=== PATIENT | female | born 1980 | race African-American/Black ===

== ENCOUNTER 2016-07-24 12:04 | Emergency (ER) | payer OTHER ==
[2016-07-24 12:22] VITALS: TEMP 97.8; BMI 32.8
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
[2016-07-24] MEDS ORDERED: KETOROLAC TROMETHAMINE 60 MG/2 ML VIAL IM ONE ×2 (12:48→15:51)
[2016-07-24] MEDS ORDERED: diazePAM 5 MG TABLET PO ONE ×2 (12:48→15:51)
[2016-07-24] MEDS ORDERED: diazePAM 5 MG TABLET ONE ×2 (12:52→16:09)
[2016-07-24] MEDS ORDERED: KETOROLAC TROMETHAMINE 60 MG/2 ML VIAL ONE (12:52)
[2016-07-24] MEDS ORDERED: CYCLOBENZAPRINE HCL 10 MG TABLET (FP) PO ONE (14:16)
[2016-07-24] MEDS ORDERED: ACETAMINOPHEN 325 MG TABLET (FP) PO ONE (14:17)
[2016-07-24] MEDS ORDERED: ACETAMINOPHEN 325 MG TABLET (FP) ONE (14:38)
[2016-07-24] MEDS ORDERED: CYCLOBENZAPRINE HCL 10 MG TABLET (FP) ONE (14:38)
[2016-07-24 18:19] VITALS: BP 163/101; PULSE 70
== END 2016-07-24 18:05 | disposition home or self-care (01) ==
LOC: JER 12:04
PROC: 3E0233Z Introduction of Anti-inflammatory into Muscle, Percutaneous Approach (ICD-10-PCS; principal; 2016-07-24)
DX: M62.830 Muscle spasm of back (principal); I10 Essential (primary) hypertension; F41.8 Other specified anxiety disorders; V49.59XA Passenger injured in collision with other motor vehicles in traffic accident, initial encounter; Y92.488 Other paved roadways as the place of occurrence of the external cause; Y93.89 Activity, other specified
CPT/HCPCS: 36415; 72070-TC; 72100-TC; 84702; 84703; 99282-25

== ENCOUNTER 2017-05-03 04:35 | Emergency (ER) | payer OTHER ==
[2017-05-03 04:56] VITALS: BP 170/110; PULSE 53; TEMP 97.6; BMI 35.5
--- NOTE | 2017-05-03 04:57 | PDOC ---
History of Present Illness - General Chief Complaint: Pain Stated Complaint: BACK PAIN Time Seen by Provider: 05/03/17 04:55 Past History - Past Medical History Allergies/Adverse Reactions: Allergies Allergy/AdvReac Type Severity Reaction Status Date / Time No Known Allergies Allergy Verified 05/03/17 04:52 Home Medications: Ambulatory Orders Alprazolam [Xanax] 1 mg PO BID 07/24/16 Amlodipine Besylate 10 mg PO DAILY 07/24/16 Cyclobenzaprine HCl [Flexeril 10 mg] 10 mg PO BID PRN #20 tablet MDD 2 07/24/16 Divalproex *ER* [Depakote *ER* -] 500 mg PO HS 07/24/16 Ibuprofen 400 mg PO QID #30 tablet 07/24/16 Lisinopril [Prinivil -] 40 mg PO DAILY 07/24/16 Omeprazole 40 mg PO DAILY 07/24/16 Zolpidem Tartrate [Ambien] 10 mg PO HS 07/24/16 Asthma: No Cancer: No Cardiac Disorders: No COPD: No Diabetes: No GI Disorders: Yes (GERD) HTN: Yes Psychiatric Problems: Yes (Anxiety, Bipolar and depression) Seizures: No Thyroid Disease: No - Surgical History Abdominal Surgery: Yes (Gastric bypass) Cholecystectomy: Yes - Reproductive History (#): 9 Para: 2 Cervical CA: No Dysfunctional Uterine Bleeding: No Ectopic : No Endometrial CA: No Polycystic Ovaries: No Therapeutic (s) & number: Yes Tubal Ligation: No Spontaneous : 1 - Suicide/Smoking/Psychosocial Hx Smoking Status: Yes Smoking History: Never smoked Have you smoked in the past 12 months: Yes Number of Cigarettes Smoked Daily: 3 Information on smoking cessation initiated: No 'Breaking Loose' booklet given: 07/24/16 Hx Alcohol Use: No Drug/Substance Use Hx: No Substance Use Type: None Hx Substance Use Treatment: No *Physical Exam - Vital Signs Last Vital Signs Temp Pulse Resp BP Pulse Ox 97.6 F 53 L 18 170/110 99 05/03/17 04:53 05/03/17 04:53 05/03/17 04:53 05/03/17 04:53 05/03/17 04:53 *DC/Admit/Observation/Transfer - Referrals Referrals: Thai Cabezas [Primary Care Provider] - - Patient Instructions - Post Discharge Activity
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
[2017-05-03 05:58] LABS: URINE APPEARANCE CLEAR; URINE BILIRUBIN NEGATIVE (<2.0 mg/dL); URINE BLOOD 3+ (NEGATIVE); URINE COLOR AMBER; URINE GLUCOSE (UA) NEGATIVE (NEGATIVE); URINE KETONE NEGATIVE (NEGATIVE); URINE LEUK ESTERASE NEGATIVE (NEGATIVE); URINE NITRITE NEGATIVE (NEGATIVE); URINE UROBILINOGEN NEGATIVE mg/dL (0.2-1.0)
[2017-05-03 05:59] LABS: HCG,QUALITATIVE URINE NEGATIVE
[2017-05-03 06:00] LABS: URINE PROTEIN 1+ (NEGATIVE)
[2017-05-03] MEDS ORDERED: KETOROLAC TROMETHAMINE 30 MG/1 ML VIAL IM ONE (06:05)
[2017-05-03] MEDS ORDERED: amLODIPine BESYLATE 10 MG TABLET (FP) PO ONE (06:07)
[2017-05-03] MEDS ORDERED: LISINOPRIL 10 MG TABLET (FP) PO ONE (06:07)
[2017-05-03 06:24] LABS: EPI CELLS FEW /HPF (FEW); URINE BACTERIA FEW /hpf (NONE SEEN)
[2017-05-03] MEDS ORDERED: LISINOPRIL 5 MG TABLET (FP) ONE (06:34)
[2017-05-03] MEDS ORDERED: amLODIPine BESYLATE 5 MG TABLET (FP) ONE ×2 (06:34→06:43)
[2017-05-03] MEDS ORDERED: KETOROLAC TROMETHAMINE 30 MG/1 ML VIAL ONE (06:34)
== END 2017-05-03 07:17 | disposition home or self-care (01) ==
LOC: JER 04:35
PROC: 3E0233Z Introduction of Anti-inflammatory into Muscle, Percutaneous Approach (ICD-10-PCS; principal; 2017-05-03)
DX: M54.5 Low back pain (principal); G89.29 Other chronic pain; I10 Essential (primary) hypertension; F31.9 Bipolar disorder, unspecified; F41.9 Anxiety disorder, unspecified
CPT/HCPCS: 81003; 81015; 84703; 87086; 96372; 99281-25

== ENCOUNTER 2017-11-18 15:31 | Emergency (ER) | payer OTHER ==
[2017-11-18 15:41] VITALS: BP 174/117; PULSE 80; TEMP 98.8; BMI 31.4
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
[2017-11-18 17:24] LABS: URINE APPEARANCE CLOUDY; URINE BILIRUBIN NEGATIVE (<2.0 mg/dL); URINE COLOR YELLOW; URINE GLUCOSE (UA) NEGATIVE (NEGATIVE); URINE KETONE NEGATIVE (NEGATIVE); URINE LEUK ESTERASE 3+ (NEGATIVE); URINE NITRITE NEGATIVE (NEGATIVE); URINE PROTEIN 1+ (NEGATIVE); URINE UROBILINOGEN NEGATIVE mg/dL (0.2-1.0)
[2017-11-18] MEDS ORDERED: morphine CARPU-JECT 2 MG/1 ML DISP.SYRIN IM ONE (17:27)
[2017-11-18 17:35] LABS: EPI CELLS MODERATE /HPF (FEW); URINE BACTERIA MODERATE /hpf (NONE SEEN); URINE MUCUS MODERATE
[2017-11-18] MEDS ORDERED: MORPHINE SULFATE 2 MG/ML VIAL ONE (17:46)
[2017-11-18 17:58] LABS: HCG,QUALITATIVE URINE Negative
[2017-11-18] MEDS ORDERED: KETOROLAC TROMETHAMINE 60 MG/2 ML VIAL IM ONE (19:40)
[2017-11-18] MEDS ORDERED: KETOROLAC TROMETHAMINE 60 MG/2 ML VIAL ONE (19:52)
[2017-11-18] MEDS ORDERED: diazePAM 5 MG TABLET PO ONE (21:09)
[2017-11-18] MEDS ORDERED: diazePAM 5 MG TABLET ONE (21:12)
== END 2017-11-18 21:41 | disposition home or self-care (01) ==
LOC: JERFT 15:31
PROC: 3E0233Z Introduction of Anti-inflammatory into Muscle, Percutaneous Approach (ICD-10-PCS; principal; 2017-11-18)
PROC: 3E023NZ Introduction of Analgesics, Hypnotics, Sedatives into Muscle, Percutaneous Approach (ICD-10-PCS; 2017-11-18)
DX: N10 Acute pyelonephritis (principal); S05.11XA Contusion of eyeball and orbital tissues, right eye, initial encounter; S40.011A Contusion of right shoulder, initial encounter; S20.211A Contusion of right front wall of thorax, initial encounter; Y04.2XXA Assault by strike against or bumped into by another person, initial encounter; Y93.89 Activity, other specified; Y92.89 Other specified places as the place of occurrence of the external cause; Y99.8 Other external cause status; H11.31 Conjunctival hemorrhage, right eye; I10 Essential (primary) hypertension; Y07.9 Unspecified perpetrator of maltreatment and neglect; F41.8 Other specified anxiety disorders; R31.9 Hematuria, unspecified; M54.5 Low back pain; G89.29 Other chronic pain; K21.9 Gastro-esophageal reflux disease without esophagitis; F17.210 Nicotine dependence, cigarettes, uncomplicated
CPT/HCPCS: 70450-TC; 70486-TC; 71101-TC-RT-FY; 72125-TC; 72128-TC; 73030-TC-RT-FY; 73090-TC-RT-FY; 73110-TC-RT-FY; 73130-TC-RT-FY; 81003; 81015; 84703; 87086; 87186; 99281-25